=== PATIENT | female | born 1985 | race Caucasian/White ===

== ENCOUNTER 2021-08-03 11:45 | Emergency (ER) | payer SELFPAY ==
[~2021-08-03] VITALS: Ht 162.6 cm; Wt 77.3 kg
[2021-08-03 11:58] VITALS: BP 125/87
[2021-08-03] MEDS ORDERED: TETanus/Pertussis (Acell)/Diphther VAC/PF (Tdap-Adult) 0.5ml syringe IMVAC ONE (12:00)
== END 2021-08-03 12:39 | disposition home or self-care (01) ==
LOC: EEVIPCON 11:46 → ER 11:46
DX: S71.112A Laceration without foreign body, left thigh, initial encounter (principal); W45.8XXA Other foreign body or object entering through skin, initial encounter; Y93.89 Activity, other specified; Y92.89 Other specified places as the place of occurrence of the external cause; Y99.8 Other external cause status
CPT/HCPCS: 12001; 90471; 90715; 99283